=== PATIENT | male | born 1980 | race Caucasian/White ===

== ENCOUNTER 2017-03-22 13:39 | Emergency (ER) | payer MEDICAID ==
[~2017-03-22] VITALS: Ht 175.3 cm; Wt 69.2 kg
[2017-03-22 13:41] VITALS: BP 156/111
[2017-03-22] MEDS ORDERED: CEFAZOLIN 1,000 MG ONE (15:28)
[2017-03-22] MEDS ORDERED: HYDROcodone/APAP 5/325 TABLET ONE (15:29)
[2017-03-22] MEDS ORDERED: DIPH,PERTUSS(ACELL),TET VAC/PF 0.5 ML IM-VACC ONE ×2 (15:29→15:30)
[2017-03-22] MEDS ORDERED: CEFAZOLIN 1,000 MG IM ONE (15:30)
[2017-03-22] MEDS ORDERED: BACITRACIN ZINC OINT 500U/GM, 0.9 GM ONE (15:30)
[2017-03-22] MEDS ORDERED: HYDROcodone/APAP 5/325 TABLET PO ONE (15:30)
[2017-03-22] MEDS ORDERED: LIDOCAINE 1%, 20ML ONE (15:30)
== END 2017-03-22 17:47 | disposition home or self-care (01) ==
LOC: ED 17:43
DX: S61.432A Puncture wound without foreign body of left hand, initial encounter (principal); W45.8XXA Other foreign body or object entering through skin, initial encounter; Y93.89 Activity, other specified; Y99.8 Other external cause status; Y92.89 Other specified places as the place of occurrence of the external cause
CPT/HCPCS: 29125; 73130; 90471; 90715; 96372; 99284; J0690

== ENCOUNTER 2017-11-11 12:47 | Emergency (ER) | payer SELFPAY ==
[~2017-11-11] VITALS: Ht 175.3 cm; Wt 69.4 kg
[2017-11-11 13:01] VITALS: BP 150/98
[2017-11-11] MEDS ORDERED: CEFAZOLIN 1,000 MG ONE (13:52)
[2017-11-11] MEDS ORDERED: SULFAMETH./TRIMETHOPRIM DS 800MG/160MG TABLET ONE (13:53)
[2017-11-11] MEDS ORDERED: SULFAMETH./TRIMETHOPRIM DS 800MG/160MG TABLET PO ONE (14:00)
[2017-11-11] MEDS ORDERED: CEFAZOLIN 1,000 MG IM ONE (14:00)
== END 2017-11-11 14:29 | disposition home or self-care (01) ==
LOC: ED 14:25
DX: L03.011 Cellulitis of right finger (principal)
CPT/HCPCS: 73140; 96372; 99284; J0690

== ENCOUNTER 2018-09-15 09:27 | Emergency (ER) | payer SELFPAY ==
[~2018-09-15] VITALS: Ht 175.3 cm; Wt 67.0 kg
--- NOTE | 2018-09-15 09:53 | NUR ---
BENJY HUTCHISON, AT BEDSIDE TO [facility].
--- NOTE | 2018-09-15 09:58 | NUR ---
FIRST CONTACT WITH PT. WHEN ASKED, PT STATES, "I HAVE PAIN IN MY RIGHT NUT". PT REPORTS HX OF HERNIA. PT REPORTS PAIN AT A 9. PT DENIES ANY OTHER SYMPTOMS.
--- NOTE | 2018-09-15 10:49 | NUR ---
PT AWARE URINE SPECIMAN ORDERED. URINAL AT BEDSIDE. NO NEEDS EXPRESSED AT THIS TIME.
[2018-09-15 11:03] VITALS: BP 127/81
[2018-09-15] MEDS ORDERED: ACETAMINOPHEN 500 MG TABLET ONE (11:29)
[2018-09-15] MEDS ORDERED: ACETAMINOPHEN 500 MG TABLET PO ONE (11:30)
--- NOTE | 2018-09-15 12:09 | NUR ---
REVIEWED DC INSTRUCTIONS WITH PT, PT VERBALIZED UNDERSTANDING. NO IV TO DC. PT LEFT AMBULATORY, GAIT STEADY. PT DC IN STABLE CONDITION, DENIES ANY ADDITIONAL NEEDS.
[2018-09-15 12:17] LABS: MICROSCOPIC INDICATED
[2018-09-15 12:18] LABS: CULTURE INDICATED? YES
== END 2018-09-15 12:10 | disposition home or self-care (01) ==
LOC: ED 10:58
DX: N45.1 Epididymitis (principal); K40.91 Unilateral inguinal hernia, without obstruction or gangrene, recurrent
CPT/HCPCS: 76870; 81001; 87077; 87086; 87186; 87491; 87591; 99284